=== PATIENT | female | born 1995 | race Two or more races ===

== ENCOUNTER 2018-06-21 18:31 | Emergency (ER) | payer SELFPAY ==
[~2018-06-21] VITALS: Ht 167.6 cm; Wt 68.0 kg
[2018-06-21] MEDS ORDERED: ONDANSETRON ODT 4 MG ONE (18:54)
[2018-06-21] MEDS ORDERED: ONDANSETRON ODT 4 MG PO ONE (19:00)
[2018-06-21] MEDS ORDERED: PROMETHAZINE 25 MG/ML, 1ML IM STA (19:38)
[2018-06-21] MEDS ORDERED: ACETAMINOPHEN 325 MG TABLET ONE (19:43)
[2018-06-21] MEDS ORDERED: PROMETHAZINE 25 MG/ML, 1ML ONE (19:43)
[2018-06-21] MEDS ORDERED: ACETAMINOPHEN 325 MG TABLET PO ONE (20:00)
[2018-06-21 20:22] VITALS: BP 120/84
--- NOTE | 2018-06-21 20:23 | NUR ---
Patient/Caregiver given discharge instructions and they have confirmed that they understand the instructions. Patient ambulatory with steady gait.
== END 2018-06-21 20:24 | disposition home or self-care (01) ==
LOC: ED 19:26
DX: S09.8XXA Other specified injuries of head, initial encounter (principal); H92.02 Otalgia, left ear; W01.0XXA Fall on same level from slipping, tripping and stumbling without subsequent striking against object, initial encounter; Y93.89 Activity, other specified; Y92.009 Unspecified place in unspecified non-institutional (private) residence as the place of occurrence of the external cause; Y99.8 Other external cause status
CPT/HCPCS: 70450; 96372; 99284; J2550; Q0162

== ENCOUNTER 2018-10-16 09:44 | Emergency (ER) | payer OTHER ==
[~2018-10-16] VITALS: Ht 167.6 cm; Wt 69.2 kg
--- NOTE | 2018-10-16 10:25 | NUR ---
pt to US
[2018-10-16] MEDS ORDERED: KETOROLAC 30 MG/1 ML IM ONE (10:30)
[2018-10-16 10:34] LABS: BASOPHILS # (AUTO) 0.05 x10^3/uL (0-0.1); BASOPHILS % (AUTO) 1 % (0-1); EOSINOPHILS # (AUTO) 0.05 x10^3/uL (0-0.4); EOSINOPHILS % (AUTO) 1 % (1-7); LYMPHOCYTES # (AUTO) 1.34 x10^3/uL (1-3.4); LYMPHOCYTES % (AUTO) 14 % (22-44); MD NO; MEAN CORPUSCULAR HEMOGLOBIN 29.9 pg (27.0-34.8); MEAN CORPUSCULAR HGB CONC 33.6 g/dL (32.4-35.8); MEAN CORPUSCULAR VOLUME 89.2 fL (80-100); MEAN PLATELET VOLUME 7.8 fL (7.4-10.4); MONOCYTES # (AUTO) 0.48 x10^3/uL (0.2-0.8); MONOCYTES % (AUTO) 5 % (2-9); NEUTROPHILS # (AUTO) 7.94 x10^3/uL (1.8-6.8); NEUTROPHILS % (AUTO) 81 % (42-75); PLATELET COUNT 249 x10^3/uL (130-400); RED BLOOD COUNT 4.74 x10^6/uL (3.82-5.3); RED CELL DISTRIBUTION WIDTH 12.3 % (9.6-15.2)
[2018-10-16 10:41] LABS: HCG UR SG 1.022 (1.003-1.030); MICROSCOPIC AUTO
[2018-10-16 10:45] LABS: CULTURE INDICATED? YES
[2018-10-16 10:46] LABS: ALANINE AMINOTRANSFERASE 25 U/L (12-78); ALBUMIN 3.6 g/dL (3.4-5.0); ANION GAP 8 mmol/L (5-15); CALCIUM 8.7 mg/dL (8.5-10.1); CHLORIDE 109 mmol/L (98-107)
[2018-10-16 10:48] LABS: ALKALINE PHOSPHATASE 71 U/L (45-117); BILIRUBIN,TOTAL 0.6 mg/dL (0.2-1.0); TOTAL PROTEIN 6.8 g/dL (6.4-8.2)
[2018-10-16] MEDS ORDERED: KETOROLAC 60 MG/2 ML ONE (10:56)
--- NOTE | 2018-10-16 10:59 | NUR ---
pt returned from US, upright on gurney awake & comfortable, responds approp to staff, NAD, comfort measures provided, call light within reach.
--- NOTE | 2018-10-16 12:05 | NUR ---
pt remains upright on gurney awake & comfortable, responds approp to staff, NAD, comfort measures provided, call light within reach.
--- NOTE | 2018-10-16 12:40 | NUR ---
pt to CT
[2018-10-16 13:03] VITALS: BP 104/65
--- NOTE | 2018-10-16 13:03 | NUR ---
pt returned from CT, upright on gurney awake & comfortable, responds approp to staff, NAD, comfort measures provided, call light within reach.
--- NOTE | 2018-10-16 13:36 | NUR ---
Patient given discharge instructions and Rx, they have confirmed that they understand the instructions. Patient ambulatory with steady gait.
[2018-10-16] MEDS ORDERED: OMNIPAQUE 350 MG/ML, 100ML BOTTLE ONE (14:03)
== END 2018-10-16 13:37 | disposition home or self-care (01) ==
LOC: ED 12:18
DX: R10.31 Right lower quadrant pain (principal); R10.32 Left lower quadrant pain; R11.0 Nausea; Z88.0 Allergy status to penicillin
CPT/HCPCS: 36415; 74177; 76830; 80053; 81001; 81025; 85025; 87086; 96372; 99284; J1885; Q9967

== ENCOUNTER 2020-06-25 19:44 | Emergency (ER) | payer OTHER ==
[~2020-06-25] VITALS: Ht 170.2 cm; Wt 85.0 kg
[~2020-06-25 19:44] MED LIST: HORMONE SUPPLEMENT PO
--- NOTE | 2020-06-25 20:13 | NUR ---
LATE ENTRY D/T PT CARE: PT WAS BIB [facility] ON AN L2K AFTER BOYFRIEND AT HOME CALLED STATING PT WAS CUTTING HERSELF IN THE RESTROOM. PT HAS SUPERFICIAL LACERATIONS DOWN BILATERAL FOREARMS AND ACROSS CHEST WITH A FEW ON ABDOMINAL REGION. PT REPORTS HAVING AN SA IN THE PAST BUT STATES SHE HASNT FELT THIS WAY IN AWHILE. PT CHANGED INTO GOWNS, NAD, PROVIDED CLEAN UNDERWEAR AND PADS WELL SOCKS. ROOM SECURED, SITTER IN LINE OF SIGHT. BED IN LOWEST. PT AMBULATED TO AND FROM RESTROOM WITH A SMOOTH AND STEADY GAIT, [facility]A OBTIANED AND SENT TO LAB, PT IS COOPERATIVE AND CRYING AT THIS TIME. 2/2 BELONGINGS BAGS PLACED IN LOCKER AND SECURED. BAGS CONTAIN: PANTS, SHOES, SOCK, PHONE, BODY SUIT AND SWEATSHIRT.
[2020-06-25 20:19] LABS: BASOPHILS % (AUTO) 1 % (0-1); EOSINOPHILS % (AUTO) 1 % (1-7); LYMPHOCYTES % (AUTO) 20 % (22-44); MEAN CORPUSCULAR HEMOGLOBIN 29.6 pg (27.0-34.8); MEAN CORPUSCULAR HGB CONC 34.4 g/dL (32.4-35.8); MEAN PLATELET VOLUME 7.8 fL (7.4-10.4); MONOCYTES % (AUTO) 5 % (2-9); NEUTROPHILS % (AUTO) 73 % (42-75); PLATELET COUNT 334 x10^3/uL (130-400); RED BLOOD COUNT 4.44 x10^6/uL (3.82-5.3); RED CELL DISTRIBUTION WIDTH 12.4 % (9.6-15.2)
[2020-06-25 20:22] LABS: MD NO
[2020-06-25] MEDS ORDERED: NEOSPORIN OINT. PKT 1 PACKET ONE (20:27)
[2020-06-25 20:30] LABS: ALANINE AMINOTRANSFERASE 43 U/L (12-78); ALBUMIN 3.8 g/dL (3.4-5.0); ANION GAP 4 mmol/L (5-15); CALCIUM 8.7 mg/dL (8.5-10.1); CHLORIDE 110 mmol/L (98-107); CREATININE 0.78 mg/dL (0.55-1.02)
--- NOTE | 2020-06-25 20:31 | NUR ---
PER PTS REQUEST. NO VISITORS.
[2020-06-25 20:32] LABS: SALICYLATE LEVEL < 1.7 mg/dL (2.8-20.0)
[2020-06-25 20:34] LABS: AMPHETAMINE SCREEN, URINE Negative (Negative); BARBITURATE SCREEN, URINE Negative (Negative); BENZODIAZEPINE SCREEN, URINE Negative (Negative); CANNABINOID SCREEN, URINE Negative (Negative); COCAINE SCREEN, URINE Negative (Negative); METHADONE SCREEN, URINE Negative (Negative); OPIATE SCREEN, URINE Negative (Negative)
[2020-06-25 20:35] LABS: ALKALINE PHOSPHATASE 113 U/L (45-117); BILIRUBIN,TOTAL 0.2 mg/dL (0.2-1.0); TOTAL PROTEIN 7.4 g/dL (6.4-8.2)
--- NOTE | 2020-06-25 20:59 | NUR ---
PT RESTING ON LB DON[place], APPEARS COMFORTABLE, ROOM SECURED, SITTER IN LINE OF SIGHT, REPORT TO ERICA COLEMAN, PT CARE TRANSFERRED AT THIS TIME.
--- NOTE | 2020-06-25 21:25 | NUR ---
Pt tearful in room, stating she does not want to be here. Process explained to patient and pt state she understands. Waiting on telepsych. Sitter outside room. Pt free of harm. Pt denies any needs at this time. PO fluid and food offered and declined at this time.
--- NOTE | 2020-06-25 21:32 | NUR ---
throughput rn: telepsych computer placed in room, order placed, awaiting eval.
--- NOTE | 2020-06-25 22:12 | NUR ---
Pt calm in room. No changes. Warm blanket given. Sitter outside room. Pt free of harm. stable VS> Will continue to monitor.
--- NOTE | 2020-06-25 23:08 | NUR ---
THROUGHPUT RN: RN CALLED TELEPSYCH TO FOLLOW UP WITH WHEN EVAL WOULD BE COMPLETED, WAS INFORMED THAT THEY HAVE A LONG WAIT AND IT MAY BE AWHILE LONGER.
--- NOTE | 2020-06-25 23:33 | NUR ---
Pt calm in bed, no changes. Pt free of harm. Will monitor. Sitter outside room.
--- NOTE | 2020-06-26 00:13 | NUR ---
PT RESTING QUIETLY IN BED WITH EYES CLOSED AND EVEN UNLABORED RESPIRATIONS. NO SIGNS OR SYMPTOMS OF ACUTE DSITRESS NOTED, SITTER AT DOORWAY TO MONITOR.
--- NOTE | 2020-06-26 01:22 | NUR ---
Dr Pavon on telepsych with patient in room. Pt calm. No changes. Will monitor.
--- NOTE | 2020-06-26 01:46 | NUR ---
THROUGHPUT RN: PT PACKET FAXED TO [facility] AT THIS TIME. AWAITING ACCEPTANCE
--- NOTE | 2020-06-26 02:27 | NUR ---
phone number [phone]
--- NOTE | 2020-06-26 02:37 | NUR ---
Report to [facility] for [facility]. Pt calm in bed. No changes. Will monitor.
[2020-06-26 04:09] VITALS: BP 116/87
--- NOTE | 2020-06-26 04:18 | NUR ---
Pt dc'd to [facility] to go to [facility]. PT A&O, ambulatory to ambulance. Pt sent with all belongings.
== END 2020-06-26 04:20 ==
LOC: ED 22:53
DX: F32.9 Major depressive disorder, single episode, unspecified (principal); F43.9 Reaction to severe stress, unspecified; Z88.0 Allergy status to penicillin
CPT/HCPCS: 36415; 80053; 80299; 80307; 80320; 80329; 84703; 85025; 99285; G0480